=== PATIENT | male | born 1980 | race Caucasian/White ===

== ENCOUNTER 2016-04-25 12:30 | Emergency (ER) | payer OTHER ==
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
[2016-04-25 13:07] LABS: ABSOLUTE EOSINOPHILS # (AUTO) 0.1 10^3/uL (0.0-0.6); ABSOLUTE LYMPHOCYTES (AUTO) 1.6 10^3/uL (0.5-4.7); ABSOLUTE MONOCYTES (AUTO) 0.3 10^3/uL (0.1-1.4); ABSOLUTE NEUT (AUTO) 3.3 10^3/uL (1.7-8.2); BASOPHILS % (AUTO) 0.4 % (0-2); EOSINOPHILS % (AUTO) 1.7 % (0-6); HEMATOCRIT 41.8 % (37.9-51.0); HEMOGLOBIN 14.3 g/dL (13.5-17.0); HGB HCT DIFFERENCE 1.1; LYMPHOCYTES % (AUTO) 29.7 % (13-45); MEAN CORPUSCULAR HEMOGLOBIN 30.2 pg (27.0-33.4); MEAN CORPUSCULAR HGB CONC 34.1 g/dL (32.0-36.0); MEAN CORPUSCULAR VOLUME 89 fl (80-97); MONOCYTES % (AUTO) 6.3 % (3-13); RED BLOOD COUNT 4.72 10^6/uL (4.35-5.55); RED CELL DISTRIBUTION WIDTH 12.2 % (11.5-14.0); SEGMENTED NEUTROPHILS % (AUTO) 61.9 % (42-78); WHITE BLOOD COUNT 5.3 10^3/uL (4.0-10.5)
[2016-04-25] MEDS ORDERED: ACETAMINOPHEN 325 MG TABLET PO ONE (13:07)
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
[2016-04-25 13:21] LABS: ALANINE AMINOTRANSFERASE 55 U/L (21-72); ALBUMIN 4.7 g/dL (3.5-5.0); ALKALINE PHOSPHATASE 44 U/L (38-126); ANION GAP 11 (5-19); ASPARTATE AMINO TRANSFERASE 28 U/L (17-59); BILIRUBIN,TOTAL 0.4 mg/dL (0.2-1.3); BLOOD UREA NITROGEN 10 mg/dL (7-20); CALCIUM 9.7 mg/dL (8.4-10.2); CARBON DIOXIDE 30 mmol/L (22-30); CHLORIDE 105 mmol/L (98-107); CREATININE RESULT 0.73 mg/dL (0.52-1.25); GLUCOSE 107 mg/dL (75-110); POTASSIUM 4.4 mmol/L (3.6-5.0); SODIUM 146.2 mmol/L (137-145); TOTAL PROTEIN 7.9 g/dL (6.3-8.2)
[2016-04-25 13:24] LABS: APPEARANCE,URINE SLIGHTLY-CLOUDY; BILIRUBIN,URINE NEGATIVE (NEGATIVE); GLUCOSE, URINE NEGATIVE (NEGATIVE); KETONES,URINE NEGATIVE (NEGATIVE); LEUKOCYTE ESTERASE,URINE NEGATIVE (NEGATIVE); NITRITE,URINE NEGATIVE (NEGATIVE); PROTEIN,URINE NEGATIVE (NEGATIVE); URINE SPECIFIC GRAVITY 1.017; UROBILINOGEN,URINE NEGATIVE mg/dL (<2.0)
[2016-04-25 13:26] LABS: ALCOHOL < 10 mg/dL (NONE DETECTED)
[2016-04-25 14:51] VITALS: BP 121/76
--- NOTE | 2016-04-26 08:24 | EKG REPORT ---
SEVERITY:- NORMAL ECG - SINUS RHYTHM : Confirmed by: Verna Love 26-Apr-2016 08:24:00
[2016-04-28 14:35] LABS: URINE BARBITURATES SCREEN NEGATIVE; URINE METHADONE SCREEN NEGATIVE; URINE PHENCYCLIDINE SCREEN NEGATIVE
== END 2016-04-25 14:51 | disposition home or self-care (01) ==
LOC: ER 12:30 → EDBD 12:30 → ER 14:51
DX: R51 Headache (principal); R55 Syncope and collapse; V89.2XXA Person injured in unspecified motor-vehicle accident, traffic, initial encounter; Z87.891 Personal history of nicotine dependence
CPT/HCPCS: 36415; 70450; 72110; 72125; 80053; 80307; 81001; 82962; 85025; 93005; 93010; 99284

== ENCOUNTER 2017-04-05 13:05 | Emergency (ER) | payer OTHER ==
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
[2017-04-05] MEDS ORDERED: DIPH/PERTUSS(ACELL)/TETANUS VAC/PF 0.5 ML SYR (>=10YO) IM ONE (14:26)
[2017-04-05] MEDS ORDERED: ACETAMINOPHEN 325 MG TABLET PO ONE (14:28)
[2017-04-05 16:15] VITALS: BP 119/73
== END 2017-04-05 16:13 | disposition home or self-care (01) ==
LOC: ER 13:05
DX: S61.215A Laceration without foreign body of left ring finger without damage to nail, initial encounter (principal); W45.8XXA Other foreign body or object entering through skin, initial encounter; Y93.89 Activity, other specified; Z23 Encounter for immunization
CPT/HCPCS: 90471; 90715; 99282

== ENCOUNTER 2019-01-24 18:22 | Emergency (ER) | payer OTHER ==
[2019-01-24] MEDS ORDERED: LIDOCAINE 1% INJ-PF (10 MG/ML) 30 ML SDV INJ ONE (19:59)
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
--- NOTE | 2019-01-24 20:35 | RADIOLOGY REPORT (SQ) ---
3 VIEWS OF RIGHT THIRD DIGIT EXAM DATE: 01/24/2019 7:59 PM CDT HISTORY: eval foreign body. COMPARISON: None. FINDINGS: No acute fracture or dislocation is seen. The joint spaces are preserved. The soft tissues are mildly swollen. No radiopaque foreign body is identified. IMPRESSION: No acute fracture or foreign body.
--- NOTE | 2019-01-24 20:52 | ER Document Report ---
HPI - HPI Time Seen by Provider: 01/24/19 19:51 Pain Level: Denies Context: Patient is a 38-year-old male that comes to the emergency department for chief complaint of laceration to the right middle finger. He is right-handed. He states that he was reaching and accidentally caught his finger on a piece of sheet metal that was sticking out and it caused a laceration. He denies numbness in the finger, he has full range of motion of the fingers, he reports his tetanus is up-to-date within 5 years, he denies any other complaints. - REPRODUCTIVE Reproductive: DENIES: : Past Medical History - General Information source: Patient - Social History Smoking Status: Never Smoker Chew tobacco use (# tins/day): No Frequency of alcohol use: Rare Drug Abuse: None Lives with: Alone Family History: CAD, DM, Hyperlipidemia, Hypertension, Other - Seizures Patient has suicidal ideation: No Patient has homicidal ideation: No Pulmonary Medical History: Reports: Hx Bronchitis Renal/ Medical History: Denies: Hx Peritoneal Dialysis Musculoskeletal Medical History: Reports Hx Musculoskeletal Trauma Traumatic Medical History: Reports: Hx Fractures - Foot - Immunizations Immunizations up to date: Yes Hx Diphtheria, Pertussis, Tetanus Vaccination: Yes Vertical Provider Document - CONSTITUTIONAL General Appearance: WD/WN, No Apparent Distress - INFECTION CONTROL TRAVEL OUTSIDE OF THE [place] IN LAST 30 DAYS: No - HEENT HEENT: Atraumatic, Normocephalic - NECK Neck: Normal Inspection - RESPIRATORY Respiratory: Breath Sounds Normal, No Respiratory Distress - CARDIOVASCULAR Cardiovascular: Regular Rate, Regular Rhythm - GI/ABDOMEN Gastrointestinal: Abdomen Soft, Abdomen Non-Tender - BACK Back: Normal Inspection - MUSCULOSKELETAL/EXTREMETIES Musculoskeletal/Extremeties: MAEW, FROM, Tender - There is a 1 cm laceration, slightly irregular, partial-thickness, over the dorsal aspect of the hand over the right third digit between the DIP and PIP joints. Range of motion intact, strength against resistance with flexion and extension intact, capillary refill and sensation intact. Normal hand examination otherwise. Course - Re-evaluation Re-evalutation: X-ray is negative. Laceration cleaned thoroughly and repaired. No evidence of tendon, large vessel, or nerve injury on exam. Provided with finger splint for protection on patient request because he is very active with his job. Discussed follow-up and return precautions. Patient states understanding and agreement. - Vital Signs Vital signs: Temp Pulse Resp BP Pulse Ox 98.6 F 92 137/80 H 99 01/24/19 18:26 01/24/19 18:26 01/24/19 18:26 01/24/19 18:26 Procedures - Laceration/Wound Repair Right middle finger Wound length (cm): 1 Wound's Depth, Shape: Irregular Laceration pre-procedure: Sterile PPE donned, Sterile drapes applied, Shur-Clens applied Anesthetic type: 1% Lidocaine Volume Anesthetic (mLs): 2 Wound explored: Clean, No foreign body removed Wound Repaired With: Sutures Suture Size/Type: 5:0, Prolene Number of Sutures: 4 Layer Closure?: No Post-procedure wound care: Sterile dressing applied, Splint applied - Protective splint Post-procedure NV exam normal: Yes Complications: No Discharge - Discharge Clinical Impression: Finger laceration Qualifiers: Encounter type: initial encounter Finger: middle finger Damage to nail status: without damage Foreign body presence: without foreign body Laterality: right Qualified Code(s): S61.212A - Laceration without foreign body of right middle finger without damage to nail, initial encounter Condition: Stable Disposition: HOME, SELF-CARE Additional Instructions: The x-ray is normal. The sutures need to be removed in 7 days at a medical facility. Keep clean, clean with soap and water, dab dry, you can apply thin film of topical antibiotic and you can wear the protective splint. Avoid soaking or scrubbing. Take the protective antibiotic as prescribed as we discussed. Follow-up with primary care. Return for any concerning symptoms including developing pain, redness, discolored drainage, swelling, fever, or any other concerning symptoms. Prescriptions: Cephalexin Monohydrate [Keflex 500 mg Capsule] 500 mg PO TID 5 Days #15 capsule Forms: Return to Work Referrals: ANDREW POWERS MD [Primary Care Provider] - Follow up as needed
[2019-01-24 22:30] VITALS: BP 128/75
== END 2019-01-24 22:29 | disposition home or self-care (01) ==
LOC: ER 18:22
DX: S61.212A Laceration without foreign body of right middle finger without damage to nail, initial encounter (principal); W45.8XXA Other foreign body or object entering through skin, initial encounter
CPT/HCPCS: 99282